=== PATIENT | male | born 1955 | race Caucasian/White ===

== ENCOUNTER 2022-08-15 13:17 | Inpatient (IN) | payer MEDICARE, BC ==
[~2022-08-15] VITALS: Ht 182.9 cm; Wt 99.0 kg
--- NOTE | 2022-08-15 15:15 | NUR ---
PT ARRIVED TO UNIT VIA WHEELCHAIR WITH SECURITY ON DIRECT ADMIT FROM [facility]. DRIVEN OVER BY EDEL. A/O X4. PT TRANSFERS TO BED INDEPENDENTLY AND USED URINAL FOR 125 ML CLEAR YELLOW VOID. PT C/O 06/26 'OBTUSE' ABDOMINAL PAIN AND NAUSEA.
[2022-08-15] MEDS ORDERED: TADALAFIL20 M1 PO (15:27)
[2022-08-15] MEDS ORDERED: ONDANSETRON ODT8 MG PO (15:27)
[2022-08-15] MEDS ORDERED: ALLOPURINOL100 MG PO (15:27)
[2022-08-15] MEDS ORDERED: LISINOPRIL20 MG PO (15:28)
[2022-08-15] MEDS ORDERED: OMEPRAZOLE20 MG PO (16:46)
[2022-08-15] MEDS ORDERED: ADULT LOW DOSE81 MG PO (16:46)
[2022-08-15] MEDS ORDERED: ROSUVASTATIN CA20 MG PO (16:47)
[2022-08-15] MEDS ORDERED: TART CHERRY CA1 EACH PO (16:47)
--- NOTE | 2022-08-15 16:47 | NUR ---
MED REC COMPLETE
--- NOTE | 2022-08-15 17:43 | NUR ---
Pt called still complaining of nausea, additional 4 mg IV zofran given. Pt up to bathroom for void. NS bolus infusing, pt returned to bed with lights dim to rest. in room, call light in reach.
--- NOTE | 2022-08-15 18:08 | NUR ---
Pt called becasue IV pump was beeping, pt also continuing to complain of pain despite IV toradol. IV morphine given. IV bolus finished, switched to continous LR at 85 ml/hr. Pt repositioned and states he is finally getting some releif. Pt complains about bed and IV pump noises. offerd to put on music which he declined. at bedside, call light in reach. Pt desires to rest.
--- NOTE | 2022-08-15 18:54 | NUR ---
Rounded on pt. Pt is sleeping on right side. Resp even and unlabored, RR 16. pt's is in room and states it seems like the pain meds are finally working which she is glad for. IVF infusing at 85 ml/hr. Call light in easy reach.
--- NOTE | 2022-08-15 19:55 | NUR ---
report from Valarie rn, pt in bed on right side - denies needs, in chair - oriented to this nurse, white board updated, call light in reach and warm blkt given to pt .
--- NOTE | 2022-08-15 20:49 | NUR ---
this rn spoke to [facility] radiology and they have the ct and us images from [place]. there is no report - this rn asked for the xray to call and also get reports. images are now available for dr daniel in [place] program to view. pt pain improved from 8 to 4/10 after 2 mg of ms and pepcid. discussed with four corner former machine operator.
--- NOTE | 2022-08-15 23:07 | NUR ---
rn round, emptied 500 ml of yellow urine from urinal - pt denies needs, call light in reach.
--- NOTE | 2022-08-16 02:25 | NUR ---
VSS AND I&O'S COMPLETED AND CHARTED. URINAL EMPTIED, MAID HOUSEKEEPER TRAN SMITH IN ROOM FOR CABLE SWAGER-SEE EMAR. CALL LIGHT IN REACH.
--- NOTE | 2022-08-16 05:05 | NUR ---
no changes, pt eyes closed, resp even.
--- NOTE | 2022-08-16 05:43 | NUR ---
VITALS, I/O, LAB DRAW AND ROUNDING DONE - PT DENIES NEEDS OR PAIN.
--- NOTE | 2022-08-16 07:11 | NUR ---
labs, h&p, med list to chart, strait tubing and lr to room in anticipation of egd? consent to front of chart for and pre procedure checklist started. call again to xray to see if they will get reports from [facility]. images are here. report to mechelle camacho for day shift.
--- NOTE | 2022-08-16 08:15 | NUR ---
Patient awake, a&ox4. Patient has showered this morning, new linens placed. Pt reports his abdominal pain and nausea are tolerable at this time. Patient updated with plan of care regarding upper scope at some point today. Pt remains NPO. No current needs. IV fluids infusing per provider order.
--- NOTE | 2022-08-16 08:28 | NUR ---
setup patient with shower this am. no other needs at this time. call light in reach.
--- NOTE | 2022-08-16 08:45 | NUR ---
Admin morphine 4mg iv for reports of 7/10 abdominal pain.
--- NOTE | 2022-08-16 09:23 | NUR ---
PATIENT IN BED, IN ROOM. VITALS AND I/O'S COMPLETED. PT HAS NO OTHER NEEDS AT THIS TIME CALL LIGHT IN REACH.
--- NOTE | 2022-08-16 10:00 | NUR ---
Spoke with pt and he states he lives in [place] in a 3 story home with many steps. Pt denies issues with steps. He lives with his , he is retired. They both drive and share reed maker. No financial issues requests a hospital bed for pt on dc and pt denies need. Explained pt would not meet criterial for a hospital bed, unless they would like to pay out of pocket. Pt plans on dc to home with when cleared medically.
--- NOTE | 2022-08-16 11:05 | NUR ---
Morphine 4MG IV for reports of 8/10 abd pain. IV site remains patent, fluids infusing per provider order. at bedside. Consent obtained from patient for EGD later today. No current needs, personal supplies and call light within reach.
--- NOTE | 2022-08-16 11:32 | NUR ---
PT ALERT, ORIENTED AND SUPPORTED BY HIS EDEL. PT IN ABDOMINAL PAIN, SAID IT HAS BEEN GOING ON FOR ABOUT 5 DAYS. PT LIVES IN [facility] [facility], SCHEDULED TO HAVE EGD LATER TODAY. PT WOULD LIKE VISIT FROM -WILL INFORM FR DUONG. PT REQUESTED PRAYER, WILL FOLLOW
--- NOTE | 2022-08-16 13:16 | NUR ---
PATIENT IN BED, IN ROOM. VITALS AND I/O'S COMPLETED. PT HAS NO OTHER NEEDS AT THIS TIME. CALL LIGHT WITHIN REACH.
--- NOTE | 2022-08-16 15:30 | NUR ---
Morphine 4MG IV and Toradol 30mg IV admin for reports of 9/10 abd pain.
--- NOTE | 2022-08-16 15:31 | NUR ---
Patient left unit for EGD at this time.
--- NOTE | 2022-08-16 16:39 | NUR ---
08/16/22 1639 Lupis Murphy [id number] PATIENT REPORT RECIEVED FROM TRAN FOLEY. PATIENT IS DROWSY. BREATHING EQUAL AND UNLABORED. OXYGEN SATURATIONS ABOVE 95% ON 3 LITERS NASAL CANNULA. PATIENT DENIES PAIN OR BEING NAUSEATED. IVF INFUSING.
--- NOTE | 2022-08-16 17:21 | NUR ---
PT. ARRIVED VIA STRETCHER. REPORT RECEIVED FROM ELECTRONIC SERVICE TECHNICIAN. PT. ALERT AND ORIENTED. AMBULATED WITH SBA TO THE BATHROOM TO VOID. VITALS TAKEN BY GEOGRAPHIC AREA INTELLIGENCE OFFICER. AT BEDSIDE.
--- NOTE | 2022-08-16 17:22 | NUR ---
PATIENT LAYING IN BED. VITALS AND I/O'S CHARTED. PATIENT DOES NOT NEED ANYTHING FURTHER. CALL LIGHT IS WITHIN REACH.
--- NOTE | 2022-08-16 18:04 | NUR ---
Patient resting in bed, no distress. Patient's vital signs are stable, afebrile. CPOX intact, spo2 96% on room air. at bedside. Patient has no needs. Personal supplies and call light within reach.
--- NOTE | 2022-08-16 19:05 | NUR ---
RECEIVED REPORT FROM PATRICIA MAYFIELD. PT IS RESTING IN BED. CALL LIGHT WITHIN REACH, NO FURTHER NEEDS AT THIS TIME.
--- NOTE | 2022-08-16 19:20 | NUR ---
NEW BAG OF LR HUNG (SEE EMAR), IV SITE IS WNL. DISCUSSED WITH PT CLEAR LIQUIDS DIET AND PT REQUESTED SOME HOT BROTH TO SIP ON, BROUGHT PT BEEF BROTH AND PT IS TOLERATING WELL. PT IS NOW AT BEDSIDE. VS PERFORMED. BP SYSTOLIC ELEVATED, WILL CALL DUARTE REGARDING BP MEDICATION. CALL LIGHT WITHIN REACH, NO FURTHER NEEDS AT THIS TIME.
--- NOTE | 2022-08-16 20:33 | NUR ---
sbp elevated, most recent was 178/85, map of 109, hr 68. pt did not have am scheduled lisinopril d/t being npo. spoke to dr daniel, telephone order read back for x1 dose po lisinopril for now. also updated on overall pt staus, pt recently given broth by primary rn rajwinder. current lisinopril daily order is in for "per tube" in emar, clarified with md that order should be po as pt has no ng tube and can swallow med safely whole. md also updated that original ct image from [facility] should be able to be seen by md per charge shift report.
--- NOTE | 2022-08-16 21:00 | NUR ---
PERFORMED WET PAN MIXER AND ASSESSMENT. PT RESTING IN BED. PT REPORTS PAIN AT 4/10 AND MANEAGABLE AT THIS TIME. NO NAUSEA REPORTED. BOWEL SOUNDS ACTIVE X4. VSS. PT REPORTS NO TINGLING/NUMBNESS IN EXTREMETIES, DIZZINESS, OR CHEST PAIN. PT TOLERATED PO MEDICATIONS WELL W/WATER. PT STABLE ON FEET FOR URINAL USE. CALL LIGHT WITHIN REACH, NO FURTHER NEEDS AT THIS TIME.
--- NOTE | 2022-08-16 22:50 | NUR ---
ANSWERED PT CALL LIGHT. PT REPORTS 8/10 LOWER ABDOMINAL PAIN WITH SEVERE NAUSEA. ADMINISTERED PRN 4 MG MORPHINE AND ZOFRAN (SEE EMAR). GAVE PT WARM BLANKET. NOW RESTING IN BED WITH EMESIS BAG IN HAND. CALL LIGHT WITHIN REACH, NO FURTHER NEEDS AT THIS TIME.
--- NOTE | 2022-08-17 00:35 | NUR ---
PT RESTING IN BED WITH EYES CLOSED. RESPIRATIONS REGULAR AND UNLABORED. NO SIGNS OF DISTRESS. CALL LIGHT WITHIN REACH.
--- NOTE | 2022-08-17 02:14 | NUR ---
IN ROOM TO PERFORM VS AND I/O'S. PT RESTING IN BED W/EYES CLOSED. VSS. NEW ICE WATER PROVIDED. CALL LIGHT WITHIN REACH, NO FURTHER NEEDS AT THIS TIME.
--- NOTE | 2022-08-17 04:16 | NUR ---
PT RESTING IN BED W/EYES CLOSED. LR STILL STILL RUNNING CONTINUOUSLY AT 85 ML/HR. BREATHING IS EVEN AND UNLABORED, NO SIGNS OF DISTRESS. CALL LIGHT WITHIN REACH.
--- NOTE | 2022-08-17 05:13 | NUR ---
ANSWERED PT CALL LIGHT REGARDING ABDOMINAL PAIN OF 7/10 AND INCREASING. ADMINISTERED PRN 4MG MORPHINE. PT ALSO STATED SCIATICA IN LEFT LEG WAS ACTING UP SO HE PERFORMED STRETCHING TO RELIEVE THIS. PERFORMED ASSESSMENT, NO ACUTE CHANGES FROM PREVIOUS ASSESSMENT. PT REMAINS ON RA W/CPOX MONITORING PER POST OP PROTOCOL FOR EGD. PT O2 SATS IN MID 90'S W/RESPIRATIONS UNLABORED AND EVEN. BOWEL TONES ARE ACTIVE X4, SLIGHTLY TENDER TO TOUCH. PT REPORTS MINIMAL NAUSEA, UNABLE TO PROVIDE PRN NAUSEA MED YET, WARM BLANKET PROVIDED FOR COMFORT. CALL LIGHT WITHIN REACH, NO FURTHER NEEDS AT THIS TIME.
--- NOTE | 2022-08-17 06:47 | NUR ---
IN ROOM TO PERFORM LONGWALL HEADGATE OPERATOR. PT REPORTS PAIN AND NAUSEA TOLERABLE AT THIS TIME AND NO NEED FOR PRN PAIN MED THAT WAS OFFERED. PT REQUESTED TEMP BE LOWERED TO 68 DEGREES, NO FEVER. PT RESTING IN BED WITH EYES CLOSED, CALL LIGHT WITHIN REACH, NO FURTHER NEEDS AT THIS TIME. PT TOLERATED ORAL MED WELL WITH WATER.
--- NOTE | 2022-08-17 06:57 | NUR ---
PT ADVANCED TO CLEAR LIQUID DIET. PT TOLERATED BEEF BROTH, WATER, AND PO MEDS WELL. PT BP SYSTOLIC IN 170'S AT START OF SHIFT, MD WAS CALLED AND X1 DOSE OF LISINOPRIL GIVEN (SEE EMAR). PT PAIN REACHED 8/10, PRN MORPHINE GIVEN X2 (SEE EMAR). PT REPORTED SEVERE NAUSEA, PRN ZOFRAN GIVEN X1 (SEE EMAR). PT ABLE TO STAND UP TO USE BEDSIDE URINAL W/STEADY GAIT AND NO COMPLAINTS OF DIZZINESS. OUTPUT SUFFICIENT. ABDOMEN REMAINS TENDER. 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
--- NOTE | 2022-08-17 07:27 | NUR ---
[facility] CALLED FOR IMAGES. STATE GAME PROTECTOR STATES TECH IS NOT IN OVER THE WEEKEND BUT SHE WILL CALL THE TECH AND HAVE THEM RETURN A CALL TO MED/SURG. AWAITING RETURN CALL.
--- NOTE | 2022-08-17 07:41 | NUR ---
Report received, care resumed. Pt resting in bed on left side with blanket over head, appears comfortable. Ivf infusing at 85 ml/hr.
--- NOTE | 2022-08-17 08:45 | NUR ---
ASSESSMENT DONE, MORNING MEDS GIVEN. PT UP TO BATHROOM AND THEN TO ARMCHAIR FOR BREAKFAST. PT ENDORSING 07/27 LEFT SCIATIC PAIN WHICH HE HAS HAD SINCE ADMIT BUT IS WORSENING. HE DOES TRY TO DO STRETCHES IN BED. WAS ABLE TO FIND A COMFORTABLE POSITION IN CHAIR WITH KNEE UP. ABD PAIN 11/26 THIS AM, NO NAUSEA. URINE YELLOW AND CLEAR. IV LR INFUSING AT 85ML/HR. PT WORKGIN ON [employer] TRAY. CALL LIGHT IN REACH.
--- NOTE | 2022-08-17 09:23 | NUR ---
PO TYLENOL GIVEN FOR 9/10 LEFT LEG SCIATIC PAIN. THIS IS AN ONGOING ISSUE, PER PT STARTED LAST FRIDAY. ALSO DISCUSSED STRETCHES, MOVEMENT. PT TRIED SOME STRETCHES AND WAS ABLE TO FIND A MORE COMFORTABLE POSITION.
--- NOTE | 2022-08-17 10:14 | NUR ---
PT CALLED TO ASK FOR PAIN MEDICATION. PT STATES HE IS HAVING "CRAMPED" ABDOMINAL PAIN IN MID-LOW ABDOMEN, DIFFUSELY "THE SAME BEFORE". NO BM SINCE LAST FRIDAY, NOW 1 WEEK, PT STATES HE NORMALLY GOES TIWCE A DAY. HE ATE 318 ML OF A CLEARS TRAY THIS MORNING AT 9. NO NAUSEA. PT IS LAYING ON RIGHT SIDE IN BED WITH IN ROOM. CALLED DR. RAMACHANDRAN AND RECIVED VERBAL ORDER FOR 60 ML OF MILK OF MAGNESIA AND FULL LIQUID DIET AT NEXT MEAL. ORDERS PLACED. AWAITING VERIFICATION, WILL GIVE IV MORPHINE FOR PAIN.
--- NOTE | 2022-08-17 11:04 | NUR ---
PATIENT SAID HE MIGHT TAKE A SHOWER TODAY. SO I AM GOING TO SET IT UP.
--- NOTE | 2022-08-17 13:42 | NUR ---
PT REQUESTING PAIN MED FOR 5/10 ABD PAIN, HE ALSO WANTS TO GET UP TO TRY TO HAVE BM AND SHOWER. PO PERCOCET GIVEN, OPTIONS, PAIN TYPES DISCUSSED.
--- NOTE | 2022-08-17 14:16 | NUR ---
PT GOT UP TO USE TOILET, NO BM BUT HE DID PASS GAS. PT ALSO SHOWERED AND THEN WENT FOR A WALK OF 1 LAP AROUND THE UNIT. PT IS SOMEWHAT WOBBLY BUT DENIES DIZZINESS. HE SAYS HIS ABD PAIN IS "PRETTY MUCH NONEXISTENT" RIGHT NOW AND HIS LEFT SCIATIC PAIN IS A 1-6/10 DEPENDING WHAT HE IS DOING. OVERALL HE FEELS MUCH BETTER AND HAS RETURNED TO BED TO REST. IVF INFUSING AT 85ML/HR, AT BEDSIDE, CALL LIGHT IN REACH.
--- NOTE | 2022-08-17 14:30 | NUR ---
PATIENT TOOK A SHOWER. THAN WALKED WITH THE NURSE AND HIS GUEST. PATIENT IS LAYING BACK DOWN IN BED.
--- NOTE | 2022-08-17 16:29 | NUR ---
IN ROOM TO GIVE MEDICATION. PT REPORTS HE FEELS THE BEST HE HAS ALL WEEK. SCIATIC PAIN AT 4/10, ABD AT 1/10. HE TOOK A GOOD NAP. PT ABULATED TO BATHROOM WITH SBA, THEN WENT FOR A WALK ONCE AROUND THE UNIT WITH . IVF INFUSING AT 85ML/HR. RESP EVEN AND UNLABORED.
--- NOTE | 2022-08-17 18:10 | NUR ---
TRAN RECIO ROUNDED ON PT, PT C/O OF SLIGHT NAUSEA, GIVEN SL ZOFRAN. PT HAS MULTIPLE QUESTIONS ABOUT PAIN MEDS BEFORE BED, ADVISED TO REEVALUATE AT THAT TIME WITH NIGHT NURSE. NO ACUTE DISTRESS AT THIS TIME.
--- NOTE | 2022-08-17 19:05 | NUR ---
RECEIVED REPORT FROM LEONARDA MAYFIELD. PT IS RESTING IN BED AND DISCUSSED PLAN FOR THE NIGHT. PT STATES PAIN AND NAUSEA ARE MANEAGABLE AT THIS TIME AND NO NEED FOR PRN MEDICATION ADMIN. PROVIDED FRESH ICE WATER. ARRIVED AND IS NOW AT BEDSIDE. CALL LIGHT WITHIN REACH, NO FURTHER NEEDS AT THIS TIME.
--- NOTE | 2022-08-17 20:25 | NUR ---
ANSWERED PT CALL LIGHT REGARDING PAIN. ADMINISTERED PRN PERCOCET (SEE EMAR) AND WARM BLANKET PROVIDED. VSS. ASSESSMENT PERFORMED. BOWEL TONES ACTIVE X4 AND ABDOMEN TENDERNESS THROUGHOUT. LUNGS ARE CLEAR THROUGHOUT AND PT IS ON RA (98%). PULSES PRESENT THROUGHOUT AND SKIN IS WARM, DRY. PT REPORTS SCIATIC PAIN IN LEFT LEG THAT IS RELIEVED WITH STRETCHING (PER STARTED 08/10 DUE TO LIFTING INJURY). NEW BAG OF LR HANGING AND RUNNING CONTINUOUS AT 85 ML/HR INTO PATENT LAC IV SITE (WNL). CALL LIGHT WITHIN REACH, AT BEDSIDE, NO FURTHER NEEDS AT THIS TIME.
--- NOTE | 2022-08-17 21:00 | NUR ---
DUARTE CALLED FOR PT UPDATE. LET HIM KNOW PT IS CURRENTLY RESTING WITH EYES CLOSED COMFORTABLY AFTER ADMINISTERING PRN PERCOCET FOR 7/10 ABDOMINAL PAIN AND SCIATIC PAIN IN LEFT LEG. LET HIM KNOW PT IS STILL YET TO HAVE BM AFTER MILK OF MAGNESIUM.
--- NOTE | 2022-08-18 01:57 | NUR ---
URINAL EMPTIED, FRESH WATER PROVIDED. PRN MOTRIN PROVIDED, pt REPORTS 5/10 PAIN AND REQUESTING MOTRIN. NO ADDITIONAL NEEDS, CALL LIGHT IN REACH.
--- NOTE | 2022-08-18 04:04 | NUR ---
PT CALLED, REQUESTED PAIN MED. PRN PO MEDICATION ADM FOR 06/26 LEFT LEG/SCIATICA. EMPTIED URINAL, EMPTIED GARBAGES. NO OTHER NEEDS VOICED.
--- NOTE | 2022-08-18 05:30 | NUR ---
IV PUMP ALARMING, ISSUE RESOLVED. NO ADDITIONAL NEEDS, CALL LIGHT IN REACH.
--- NOTE | 2022-08-18 06:39 | NUR ---
IN ROOM FOR PT ASSESSMENT, PT IS ALERT AND ORIENTED X4 IN BED. PT REPORTS PAIN AT MANEAGABLE 3/10 IN LEG/ABDOMEN. PT REPORTS NO NAUSEA AT THIS TIME. ABDOMEN IS ANESTHESIOLOGIST ASSISTANT AND ACTIVE IN ALL 4 QUADRANTS. NO BM. VSS. NO ACUTE CHANGES FROM FIRST ASSESSMENT. CALL LIGHT WITHIN REACH, NO FURTHER NEEDS AT THIS TIME.
--- NOTE | 2022-08-18 06:56 | NUR ---
PT SLEPT MAJORITY OF THE NIGHT. PT REQUIRED PERCOCET X2, AND MOTRIN X1. PAIN WAS REPORTED IN ABDOMEN AND LEFT LEG. NO BM. URINE OUTPUT SUFFICIENT. PER CONVERSATION WITH PT NERVOUS ABOUT PAIN MNGMNT AT HOME POST DISCHARGE. VSS. INDEPENDENT IN ROOM.
--- NOTE | 2022-08-18 07:32 | NUR ---
PT RESTING EYES CLOSED AT TIME OF SHIFT REPORT, LEFT UNDISTURBED. CALL LLIGHT AND NEEDED ITEMS AT BEDSIDE
--- NOTE | 2022-08-18 08:15 | NUR ---
patient in the chair waiting for breakfast. the patient says hes feeling good today. call light within reach. no further needs at this time.
--- NOTE | 2022-08-18 09:03 | NUR ---
PT UP TO THE CHAIR FOR MORNING MEAL REQUESTS IBUPROFEN FOR ABDOMINAL PAIN. PT EATS SEVERAL BITES OF BREAKFAST, STATES ABDOMINAL PAIN IS A BIT WORSE.
--- NOTE | 2022-08-18 10:18 | NUR ---
PT RESTING IN BED ZOFRAN ADMINISTERED PER REQUEST FOR NAUSEA, ABDOMEN CONTINUES TO BE PAINFUL. CONTACTED DR RAMACHANDRAN TO REPORT NO BM SINCE THE ORDERS FOR MOM AND SUPPOSITORY RECEIVED. PT IS PRESENT IN THE ROOM
--- NOTE | 2022-08-18 11:23 | NUR ---
PT UP TO THE TOILET PASSES GAS ONLY, NO STOOL. RETURNS TO RESTING IN BED, IS PRESENT IN THE ROOM. VERBALIZES DESIRE FOR PT TO REMAIN IN THE HOSPITAL STATES BEDROOMS ARE DOWNSTAIRS BATHROOM IS ON MAIN FLOOR SHE FEELS UNCERTAIN OF HOW TO GET HIM THERE AND BACK. PT IS AMBULATORY IN THE ROOM PRESENTLY REQUIRING NO ASSISTIVE DEVICE OR STAFF ASSIST. ASSURED PT THAT THE DR WOULD SEE PT BEFORE ANY DC ORDER WAS GIVEN
[2022-08-18] MEDS ORDERED: IBUPROFEN600 MG PO (12:31)
[2022-08-18] MEDS ORDERED: ACETAMINOPHEN500 MG PO (12:31)
[2022-08-18] MEDS ORDERED: OXYCODON-ACETA1 EAC2 PO (12:31)
[2022-08-18] MEDS ORDERED: SUCRALFATE1 GM PO (12:32)
[2022-08-18] MEDS ORDERED: MILK OF MA400 MG/5 M PO (12:32)
--- NOTE | 2022-08-18 13:19 | NUR ---
DR RAMACHANDRAN IN TO SEE PT DC INSTRUCTIONS DISCUSSED AT LENGTH. PT DENIES FURTHER QUESTIONS OR CONCERNS R/T DC.
--- NOTE | 2022-08-20 15:39 | PATH ---
[facility] [address], [place] [address] Signed SPECIMEN(S): A DUODENAL BIOPSY SPECIMEN(S): B PROXIMAL STOMACH BIOPSY SPECIMEN(S): C STOMACH POLYP SPECIMEN SOURCE: A. DUODENAL BIOPSY B. PROXIMAL STOMACH BIOPSY C. STOMACH POLYP CLINICAL HISTORY: History of abdominal pain, nausea, vomiting. Post: Proximal gastritis, gastric polyp. FINAL PATHOLOGIC DIAGNOSIS: A. Duodenal biopsy: - Benign duodenal mucosa, negative for specific diagnostic abnormality. B. Proximal stomach biopsy: - Superficial mild acute and chronic gastritis. - Helicobacter pylori immunostain is negative for organisms. C. Stomach polyp: - Benign fundic gland polyp. [id number] MICROSCOPIC EXAMINATION: Histologic sections of all submitted blocks are examined by light microscopy. These findings, together with the gross examination, support the pathologic diagnosis. A Helicobacter pylori immunostain is performed with appropriate positive and negative controls on block B1 and is negative for organisms. GROSS DESCRIPTION: Three specimens are received in three containers labeled with "TW." A. The specimen, labeled "TW, 1," and designated on the requisition "duodenum biopsy," is received in formalin and consists of two fragments of pink-bui tissue (0.2-0.3 cm in greatest dimension). The specimen is submitted entirely in cassette (A1). B. The specimen, labeled "TW, 2," and designated on the requisition "proximal stomach biopsy," is received in formalin and consists of three fragments of pink-bui tissue (0.3 cm in greatest dimension). The specimen is submitted entirely in cassette (B1). C. The specimen, labeled "TW, 3," and designated on the requisition "stomach PATIENT NAME: LIBBY DAVIES PATHOLOGY DATE OF : 57 REPORT #: [id number] PHYSICIAN: TASHA SOSA PCP: HARISH WONG DO REPORT IS CONFIDENTIAL AND NOT TO BE RELEASED WITHOUT AUTHORIZATION [facility] [address], [place] [address] Signed polypectomy," is received in formalin and consists of one fragment of pink-bui tissue (0.3 cm in greatest dimension). The specimen is submitted entirely in cassette (C1). AC (under the direct supervision of a pathologist) The Gross Description was prepared using a voice recognition system. The report was reviewed for accuracy; however, sound-alike word errors, addition and/or deletions may occur. If there is any question about this report, please contact Client Services. ADDITIONAL NOTES: Immunohistochemical and/or in situ hybridization studies were performed on this case with the appropriate positive controls that react as expected. This test was developed and its performance characteristics determined by [facility]. It has not been cleared or approved by the U.S. Food and Drug Administration. The FDA has determined that such clearance or approval is not necessary. This test is used for clinical purposes. It should not be regarded as investigational or for research. [facility] is certified under the Clinical Laboratory Improvement Amendments of 1988 (CLIA) as qualified to perform high complexity clinical laboratory testing. This assay has not been validated for specimens that have been decalcified. PERFORMING LABORATORY: The technical component was performed by [facility], [address] [place] [id number] (CLIA# [id number]). Professional interpretation was performed by [facility], [address] [place] [address] [place] [address] (CLIA#: [id number]). Diagnostician: Jeremiah Nunez MD Pathologist Electronically Signed 08/20/2022 Copies: ~ PATIENT NAME: LIBBY DAVIES PATHOLOGY DATE OF : 57 REPORT #: [id number] PHYSICIAN: TASHA PATHOLOGY PCP: HARIHS WONG DO REPORT IS CONFIDENTIAL AND NOT TO BE RELEASED WITHOUT AUTHORIZATION
--- NOTE | 2022-08-20 17:55 | DS ---
[facility] [address], [place] [address] Signed ADMISSION DATE: 08/15/2022 DISCHARGE DATE: 08/18/2022 REASON FOR ADMISSION: This 67-year-old white man lives in [place], was accompanied by his . He was accepted in transfer by POV from Dr. Alvarez of [place], [place] at [facility]. The patient has had diffuse poorly localized abdominal pain. His evaluation at [place] included a CT scan of the abdomen, which was normal and an ultrasound showing no stones or other abnormality. His symptoms began Friday, the day of admission, , 4 days after eating a meal. He had significant diffuse abdominal pain associated with nausea, but not notable for vomiting. He was evaluated by Dr. Alvarez and was admitted to the hospital. His lab studies showed no evidence of abnormality on CBC or Chem profile. Urinalysis was normal. He was able to eat the following day of admission, resulting in immediate return of pain, which was diffuse and poorly localized and clearly not in the epigastric or right subcostal area. He has had no such similar problems in the past. Additionally, he was noted to have some sciatic pain related to multiple heavy lifting episodes and moving rock and other yard articles in recent times. The relationship to his current symptoms is uncertain. PAST MEDICAL HISTORY: Does include type 2 diabetes, hyperlipidemia, hypertension, as well as gout. PHYSICAL EXAMINATION: HEENT: Mucous membranes are dry. NECK: Trachea midline. CHEST: Clear. HEART: Regular without murmur. ABDOMEN: Easily palpated. There is no focal mass or tenderness. No ascites. No mass. EXTREMITIES: Show no clubbing, cyanosis, or edema. LABORATORY STUDIES: Including Chem profile, CBC and UA were all normal. HOSPITAL COURSE: He was admitted with the recommendation of Dr. Alvarez that he undergo upper endoscopy on the basis of his symptoms. Notably, the patient does not have classic symptoms of biliary disease or peptic disease per se. He had been admitted with fluid resuscitation as he was a bit dehydrated. Subsequent lab studies remain normal including Chem profile, lipase, and CBC. Urinalysis was essentially normal as well. It is unclear Electronically Signed By: JOSEFINA RAMACHANDRAN MD 08/20/22 1755 PATIENT NAME: LIBBY DAVIES DISCHARGE SUMMARY DATE OF : 57 REPORT #: [id number] PHYSICIAN: JOSEFINA RAMACHANDRAN MD PCP: HARISH WONG DO REPORT IS CONFIDENTIAL AND NOT TO BE RELEASED WITHOUT AUTHORIZATION [facility] [address] [place] [id number] Signed exactly what his symptoms were as he was quite improved as he had been in [place]. On the basis of his findings and mindful of his referring physician's desire for upper endoscopy, this was performed on August 16, 2022, confirming a normal esophagus and duodenum and mild proximal gastritis of the fundus of the stomach. CLOtest biopsies were negative, indicative of no evidence of H. pylori. The patient was monitored closely and advanced in his diet, which he ultimately tolerated well. In due course, the abdominal pain was not his dominant problem, but rather "sciatic pain" related to his left posterior leg. He related this to lifting of multiple rocks in his garden in the preceding week or so. The patient had not yet had a bowel movement at the time of discharge, but has been given milk of magnesia. He has had numerous colonoscopies in the past, he notes. FOLLOWUP PLAN: He will return to his primary care provider, Dr. Alvarez in [place], [place] as well as Dr. Perez, whom he has seen previously. He will be discharged with pantoprazole as well as Carafate on the basis of proximal gastritis, but I do not expect him to have any decline in his GI function particularly. Recurrent symptoms would warrant further evaluation, which might include a CCK-HIDA test to assess for biliary disease. He has had ambiguous localization of his "pain" including mid abdomen, upper abdomen and lower abdomen. DISCHARGE DIAGNOSES: 1. Diffuse lower abdominal pain, etiology uncertain. Normal CAT scan and ultrasound of gallbladder and upper abdomen. 2. Status post upper endoscopy showing mild proximal fundic gastritis (treated). 3. Diabetes mellitus. 4. Gout. DISCHARGE MEDICATIONS: 1. Ibuprofen 600 mg p.o. q.6 hours as needed for pain #30, no refill. 2. Percocet 7.5/325 one p.o. q.6 hours as needed for pain #12, no refill. 3. Tylenol plain 1000 mg p.o. q.6 hours as needed for pain #60, refill 2. 4. Milk of magnesia 60 mL taken orally until bowel movement. 5. Sucralfate 1 g p.o. at bedtime daily. He will resume his other medications at home including Zofran, allopurinol, tadalafil, lisinopril, aspirin low-dose, rosuvastatin, vitamin, berry and celery extract, capsule. Electronically Signed By: JOSEFINA RAMACHANDRAN MD 08/20/22 8918 PATIENT NAME: LIBBY DAVIES DISCHARGE SUMMARY DATE OF : 57 REPORT #: [id number] PHYSICIAN: JOSEFINA RAMACHANDRAN MD PCP: HARISH WONG DO REPORT IS CONFIDENTIAL AND NOT TO BE RELEASED WITHOUT AUTHORIZATION [address] [place], [place] [address] Signed MD JULITO Canales/SIMON /[id number] cc: Josefina Alvarez MD Copies: JOSEFINA ALVAREZ MD ~ Electronically Signed By: JOSEFINA RAMACHANDRAN MD 08/20/22 1755 PATIENT NAME: LIBBY DAVIES DISCHARGE SUMMARY DATE OF : 57 REPORT #: [id number] PHYSICIAN: JOSEFINA RAMACHANDRAN MD PCP: HARISH WONG DO REPORT IS CONFIDENTIAL AND NOT TO BE RELEASED WITHOUT AUTHORIZATION
--- NOTE | 2022-08-20 17:55 | OR ---
[facility] [address] [place], [place] [address] Signed DATE OF OPERATION: 08/16/2022 SURGEON: Josefina Ramachandran MD PREOPERATIVE DIAGNOSES: 1. Recurrent nausea and generalized abdominal pain. 2. Normal-appearing ultrasound and CT scan of abdomen. POSTOPERATIVE DIAGNOSIS: Mild proximal gastritis. PROCEDURE: Esophagogastroduodenoscopy with biopsy. ANESTHESIA: Intravenous sedation; fentanyl 100 mcg, Versed 3.5 mg. INDICATION: This 67-year-old white man was referred by Dr. Goodman of [place], [place] with chronic recurrent generalized abdominal pain and postprandial nausea. He has undergone a CT scan in [place], which was negative and an ultrasound which was additionally normal. He has no elevated white count or elevated or decreased hematocrit. The patient was admitted, observed and monitored and although at times feels perfectly fine, subsequently have symptoms of significant upper and mid abdominal pain with associated nausea but no vomiting. He has had no hematemesis or blood per rectum. He is admitted at this time to undergo upper endoscopy to better characterize the problem. He understands the risk of bleeding, infection, and perforation. FINDINGS: There is no sign of ulceration, but he did have proximal gastritis to [id number] degree. CLOtest was negative indicating no evidence of H pylori. There is certainly no sign of neoplasm, gastric outlet obstruction, ulceration or other problem. DESCRIPTION OF PROCEDURE: The patient was brought to the endoscopy suite and placed in lateral decubitus position and given topical lidocaine hypopharyngeal anesthesia. A bite block was placed. He was given intravenous sedation to the point of slurred speech and nystagmus with full cardiopulmonary monitoring. An Olympus video upper endoscope was passed in the hypopharynx. The vocal cords Electronically Signed By: JOSEFINA RAMACHANDRAN MD 08/20/22 1753 PATIENT NAME: LIBBY DAVIES OPERATIVE REPORT DATE OF : 57 REPORT #: [id number] PHYSICIAN: JOSEFINA RAMACHANDRAN MD PCP: HARISH WONG DO REPORT IS CONFIDENTIAL AND NOT TO BE RELEASED WITHOUT AUTHORIZATION [facility] [address] [place], [place] [address] Signed appeared normal. The esophagus throughout its length was entirely normal. Scope was advanced to the stomach, which was insufflated with air. Rugal folds appeared normal. The antrum was reasonably normal as was the pylorus. The scope was passed through into the duodenum, which was normal. There was no sign of ulceration or neoplasm. Biopsies were obtained nevertheless to assess for celiac disease. The scope was withdrawn and retroflexed view undertaken showing the proximal stomach to have diffuse mild to moderate gastritis. There was no sign of ulceration or neoplasm. Biopsies were taken of the proximal stomach for both HOLLI and pathologic testing. The scope was straightened and withdrawn and the esophagus appeared normal. Further withdrawal of the scope showed no other findings of concern. The patient was taken to the recovery room in good condition. CONCLUDING DIAGNOSIS: As the patient has been variably treated with peptic medications over the past few days, his current proximal gastritis may already be improving. We will initiate Carafate and PPI medication and a trial of oral intake once again and assess his response. MD JULITO Canales/POOJAL /[id number] cc: Dr. Goodman Copies: ~ Electronically Signed By: JOSEFINA RAMACHANDRAN MD 08/20/22 1755 PATIENT NAME: LIBBY DAVIES OPERATIVE REPORT DATE OF : 57 REPORT #: [id number] PHYSICIAN: JOSEFINA RAMACHANDRAN MD PCP: HARISH WONG DO REPORT IS CONFIDENTIAL AND NOT TO BE RELEASED WITHOUT AUTHORIZATION
--- NOTE | 2022-08-20 17:56 | HP ---
[facility] [address], [place] [address] Signed ADMISSION DATE: 08/15/2022 REASON FOR ADMISSION: Enigmatic abdominal pain. HISTORY OF PRESENT ILLNESS: This 67-year-old white man lives in [place] and is accompanied by his . He is accepted in transfer by POV from Dr. Alvarez of [place], [place] at [facility]. The patient has diffuse poorly localized abdominal pain described by the patient as "uncomfortableness." He has had a CT scan of the abdomen which was interpreted as negative and an ultrasound today which shows no stones or other abnormality. His symptoms began Friday (today is ) after eating a meal. He had rather significant diffuse abdominal pain associated with nausea, but not particularly notable for vomiting. He presented to the emergency room where he was evaluated by and was admitted. His lab studies showed no evidence of abnormality of CBC or Chem profile. Urinalysis was normal as well. He was able to eat the day following his admission, which resulted in immediate return of pain which was diffuse and poorly localized and clearly not in the epigastric or right subcostal area. He has had no similar such problems in the past. He ultimately was able to be discharged home tolerating a regular diet but returned to the emergency room soon thereafter with recurrence of his abdominal pain. He was considered to have acute enteritis with associated gastroparesis at that time. PAST MEDICAL HISTORY: Notable for type 2 diabetes, hyperlipidemia, hypertension, gout. SOCIAL HISTORY: He is and retired and lives in [place]. 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 PHYSICAL EXAMINATION: GENERAL: Pleasant white man who is clinically dehydrated with very dry mucous membranes. VITAL SIGNS: Show a temperature of 98.9, pulse 64, blood pressure 180/86, respirations 16. HEENT: Mucous membranes are dry as noted. NECK: Trachea is midline. CHEST: Clear without wheeze or rhonchi. Electronically Signed By: JOSEFINA RAMACHANDRAN MD 08/20/22 1756 PATIENT NAME: LIBBY DAVIES HISTORY AND PHYSICAL DATE OF : 57 REPORT #: [id number] PHYSICIAN: JOSEFINA RAMACHANDRAN MD PCP: HARISH WONG DO REPORT IS CONFIDENTIAL AND NOT TO BE RELEASED WITHOUT AUTHORIZATION [facility] [address] [place], [place] [address] Signed HEART: Regular without murmur. ABDOMEN: Easily palpated. There is no focal mass or tenderness. He has no ascites. There is no mass. EXTREMITIES: Show no clubbing, cyanosis, or edema. LAB STUDIES: Included in his transfer paperwork show a normal Chem profile and CBC. COVID test x2 is negative. Urinalysis was normal. Imaging studies from [place] were to be pushed to [facility]. I did not see them in our system quite at this time. ASSESSMENT: His abdominal pain is not particularly typical of biliary colic, peptic disease or other obvious abnormality. He shows no clinical evidence of small bowel obstruction or acute diverticulitis or nephrolithiasis. He has clinically dehydrated and has been poorly able to tolerate in a sustained way any oral intake since Friday four days. Consideration was made by Dr. Goodman that he undergo upper endoscopy; this may be appropriate particularly if he has peptic disease that is not better characterized. He tells me he has had several colonoscopies, which have shown polyps in the past. He is not known to have any underlying gastrointestinal disorder, specifically no inflammatory bowel disease, irritable bowel syndrome, or other abnormality. He denies any family history of gastrointestinal malignancy. We will review his CT scan which was performed in [place] two days ago as well as the ultrasound. We are hopeful and optimistic that the imaging studies can be available to us. Upper endoscopy could easily be undertaken as appropriate. The consideration that he may have gastroparesis would be primarily diagnosed with a solid food emptying study, which I believe to be unlikely available tomorrow based on current logistics of our hospital. We will manage his abdominal pain complaints with medication as well as his IV fluid administration. Repeat imaging study possibly to include CT scan might be a consideration depending on his clinical course. Josefina Ramachandran MD Electronically Signed By: JOSEFINA RAMACHANDRAN MD 08/20/22 1756 PATIENT NAME: LIBBY DAVIES HISTORY AND PHYSICAL DATE OF : 57 REPORT #: [id number] PHYSICIAN: JOSEFINA RAMACHANDRAN MD PCP: HARISH WONG DO REPORT IS CONFIDENTIAL AND NOT TO BE RELEASED WITHOUT AUTHORIZATION [address] [address] Signed JULITO/SIMON /[id number] cc: Dr. Alvarez Copies: ~ Electronically Signed By: JOSEFINA RAMACHANDRAN MD 08/20/22 1756 PATIENT NAME: LIBBY DAVIES HISTORY AND PHYSICAL DATE OF : 57 REPORT #: [id number] PHYSICIAN: JOSEFINA RAMACHANDRAN MD PCP: HARISH WONG DO REPORT IS CONFIDENTIAL AND NOT TO BE RELEASED WITHOUT AUTHORIZATION
== END 2022-08-18 13:48 | disposition home or self-care (01) | DRG 392 ==
LOC: MS 13:17
PROVIDERS: ADMIT Surgery; ATTEND Surgery
PROC: 0DB68ZX Excision of Stomach, Via Natural or Artificial Opening Endoscopic, Diagnostic (ICD-10-PCS; 2022-08-16)
PROC: 0DB98ZX Excision of Duodenum, Via Natural or Artificial Opening Endoscopic, Diagnostic (ICD-10-PCS; principal; 2022-08-16 15:30)
DX: R10.84 Generalized abdominal pain (principal); E11.9 Type 2 diabetes mellitus without complications; K29.60 Other gastritis without bleeding; E78.00 Pure hypercholesterolemia, unspecified; I10 Essential (primary) hypertension; M10.9 Gout, unspecified; E86.0 Dehydration
CPT/HCPCS: 36415; 80053; 81001; 83690; 85025; 88305; 88342; 99153; A9270; G0500; J1644; J1885; J2250; J2270; J2405; J3010; J7121